=== PATIENT | male | born 1960 | race Caucasian/White ===

== ENCOUNTER 2017-12-17 22:32 | Emergency (ER) | payer BC ==
[2017-12-17 22:46] VITALS: BP 146/80; PULSE 82; RESP 16; TEMP 98.8; O2SAT 94
[2017-12-17] MEDS ORDERED: CEPHALEXIN 500MG PREPACK#4 BTL TAKEHOME ONE (22:58)
--- NOTE | 2017-12-17 23:01 | EDPHY ---
H & P HPI/ROS: CHIEF COMPLAINT: Toe pain History by patient HISTORY OF PRESENT ILLNESS: 57-year-old otherwise healthy man presents complaining of pain and redness in his left great toe which began this evening after soaking in his hot tub. Patient states he was rock climbing 2 nights ago but did not have any specific trauma to his toe and was not bothering him at that time. There has been no specific trauma to the toe. He denies any fever or well as or other symptoms. There has been no nausea or vomiting. He had 2 glasses of wine in ate some [employer] food including toe food tonight. He has no prior history of gout and no family history of gout. He is able to weight bear. The toes very sensitive. 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 He has a history of paronychia in the past. He has no prior history of MRSA. REVIEW OF SYSTEMS: As in HPI, and all other systems reviewed and are negative Smoking Status: Never smoked Physical Exam: General Appearance: Alert and no distress. Eyes: Pupils equal and round no injection. Musculoskeletal: Neck is supple and nontender. Extremities: Left great toe positive erythema and warmth involving predominantly the distal toe around the nail but no evidence of pus or paronychia, no joint tenderness and full range of motion of the PIP joint without pain, distal cap refill less than 2 sec, distal sensation intact, DP pulse 2 +and equal to right,. Positive thickened, yellowed toenails on all toes Skin: No rashes or lesions except as described above. Constitutional: Initial Vital Signs Temperature (C) 37.1 C 12/17/17 22:35 Heart Rate 82 12/17/17 22:35 Respiratory Rate 16 12/17/17 22:35 Blood Pressure 146/80 H 12/17/17 22:35 O2 Sat (%) 94 12/17/17 22:35 O2 Delivery Mode Room Air Allergies/Adverse Reactions: No Known Allergies Allergy (Verified 12/17/17 22:41) Home Medications: Medication Instructions Recorded Cephalexin 500 mg PO QID #24 tablet 12/17/17 MDM/Departure - MDM ED Course/Re-evaluation: 57-year-old man with history of chronic fungal infection is toenails presents with redness tenderness and warmth of the left great toe which is not involving the joint per se. There is no evidence of systemic toxicity. Although this could be gout, we will go ahead and treat for cellulitis. Patient will be started on Keflex. I am recommending ibuprofen for pain and recheck in approximately 24 hr sooner if worse. - Depart Disposition: Home, Routine, Self-Care Clinical Impression: Cellulitis Qualifiers: Site of cellulitis: extremity Site of cellulitis of extremity: toe Laterality: left Qualified Code(s): L03.032 - Cellulitis of left toe Condition: Good Instructions: Cellulitis (ED) Additional Instructions: You were seen by Dr. Samantha Blair today. We are treating you for an infection in your toe. Take antibiotics as prescribed. I recommend probiotics once a day to be taken in between doses of antibiotics. He may take ibuprofen 600 mg 4 times a day for pain. I recommend elevating your toe and soaking it in warm soapy water 3 times a day. Please have your toe rechecked on Wednesday morning and sooner if worsening such as spreading redness, pus draining or you get high fever or other problems. Return for any worsening or new concerns. Prescriptions: Cephalexin 500 mg PO QID #24 tablet Referrals: TAMMY NASSAR [Primary Care Provider] - As per Instructions
== END 2017-12-17 23:16 | disposition home or self-care (01) ==
LOC: CED 22:32
DX: L03.032 Cellulitis of left toe (principal)

== ENCOUNTER 2018-06-18 16:35 | Emergency (ER) | payer BC ==
--- NOTE | 2018-06-18 16:44 | EDPHY ---
H & P Time Seen by Provider: 06/18/18 16:43 HPI/ROS: CHIEF COMPLAINT: Left eye injury HISTORY OF PRESENT ILLNESS: This is a healthy 57-year-old male who presents with a left eye injury. He was playing with his 12-year-old son at [employer] , wrestling, when his son's finger when into his left eye. He has not had any significant pain since this occurred but presents because of eye redness. He does not have a foreign body sensation. He has had no change in vision. In 2002 he underwent laser surgery for vision correction. Tetanus is current. REVIEW OF SYSTEMS: A ten point review of systems was performed and is negative with the exception of the items mentioned in the HPI. Past medical history: Negative Past surgical history: Laser surgery both eyes Social history: No tobacco use. General Appearance: Alert. Vital signs reviewed. Blood pressure 162/88 Head: Normocephalic atraumatic. Neck: Nontender to palpation over the cervical spine. Eyes: Visual Acuity: noted from Nurse's notes. Pupils:equal round and reactive to light EOMI Lids: no edema or swelling Skin: no proptosis, no periorbital erythema or swelling, no vesicles Conjunctivae: Subconjunctival hemorrhage OS, no discharge Cornea: exam with fluorescein shows a small corneal abrasion at approximately 3 o'clock 0 you Anterior chamber:normal, no hyphema or hypopyon Respiratory: Lungs are clear to auscultation. Cardiovascular: Regular rate and rhythm; no murmur, rub, or gallop. Skin: Warm and dry, no rashes on exposed skin, normal color.. Neurological: Alert and oriented. Moving all four extremities easily and equally. Psychiatric: Normal affect. - Personal History Tetanus Vaccine Date: 09/24/15 - Medical/Surgical History Hx Asthma: No Hx Chronic Respiratory Disease: No Hx Diabetes: No Hx Cardiac Disease: No Hx Renal Disease: No Hx Cirrhosis: No Hx Alcoholism: No Hx HIV/AIDS: No Hx Splenectomy or Spleen Trauma: No Other PMH: typhoid fever (in [place]), Right achilles repair, tonsillectomy. L SHOULDER BICEPT REPAIR, T&A, BCC. - Social History Smoking Status: Never smoked Constitutional: Initial Vital Signs Temperature (C) 36.9 C 06/18/18 16:46 Heart Rate 78 06/18/18 16:46 Respiratory Rate 16 06/18/18 16:46 Blood Pressure 162/88 H 06/18/18 16:46 O2 Sat (%) 96 06/18/18 16:46 O2 Delivery Mode Room Air Allergies/Adverse Reactions: No Known Allergies Allergy (Verified 06/18/18 16:45) Home Medications: Medication Instructions Recorded Sulfacetamide 10% [Bleph-10 10%] 0 drops LEFTEYE Q4H #1 opht.btl 06/18/18 Medical Decision Making ED Course/Re-evaluation: 0U with subconjunctival hemorrhage and small corneal abrasion as a result of being poked in the eye by finger. He is not experiencing any pain. No change in vision. Tetanus is up-to-date. He is being given a prescription for antibiotic eyedrops. [id number] pain medication recommended if needed. He is being given a referral to Ophthalmology and advised to follow up this coming week. He was given written and verbal information about both subconjunctival hemorrhage and corneal abrasion. Danger signs were reviewed with him. He knows that his blood pressure was high in the emergency department. He is advised to have this followed up by his primary care physician. Differential Diagnosis: I considered a differential diagnosis that includes but is not limited to globe injury, subconjunctival hemorrhage, scleral laceration, herpes simplex, UV keratitis, corneal abrasion. Departure - Departure Disposition: Home, Routine, Self-Care Clinical Impression: Subconjunctival hemorrhage of left eye Corneal abrasion, left Qualifiers: Encounter type: initial encounter Qualified Code(s): S05.02XA - Injury of conjunctiva and corneal abrasion without foreign body, left eye, initial encounter Condition: Good Instructions: Subconjunctival Hemorrhage (ED), Corneal Abrasion (ED) Additional Instructions: Adult Pain & Fever Control: We recommend Acetaminophen (Tylenol) and Ibuprofen (Motrin,Advil) for pain and fever control. When fever is high or pain severe, both drugs can be used at the same time, but at different intervals. Please note the time differences. Your dose is: Acetaminophen [650]mg every 4 to 6 hours Note: do not take Acetaminophen with Hydrocodone (Vicodin, Lortab) or Oycodone (Percocet). These medications also contain Acetaminophen. No more than 3000mg of Acetaminophen should be taken in 24 hours (for an adult). In addition to a subconjunctival hemorrhage you also have a small corneal abrasion on the left. I am prescribing antibiotics for this. Please use them according to the instructions. I am also referring you to an cylinder dyer for follow-up. I recommend that you be seen within the next couple of days. If you are worse in any way--increasing pain, decreasing vision, any new or concerning symptoms--please be re-evaluated immediately. Referrals: TAMMY NASSAR [Primary Care Provider] - As per Instructions Prescriptions: Sulfacetamide 10% [Bleph-10 10%] 0 drops LEFTEYE Q4H #1 opht.btl
[2018-06-18 16:51] VITALS: BP 162/88
== END 2018-06-18 17:44 | disposition home or self-care (01) ==
LOC: CED 16:35
DX: S05.02XA Injury of conjunctiva and corneal abrasion without foreign body, left eye, initial encounter (principal); H11.32 Conjunctival hemorrhage, left eye; W51.XXXA Accidental striking against or bumped into by another person, initial encounter; Y92.89 Other specified places as the place of occurrence of the external cause; Y99.8 Other external cause status; Y93.72 Activity, wrestling